=== PATIENT | female | born 1990 | race Hispanic/Latino ===

== ENCOUNTER 2018-01-06 10:46 | Outpatient (CLI) | payer MEDICAID ==
--- NOTE | 2018-01-06 16:43 | ULT ---
BILATERAL BREAST ULTRASOUND: Date: 01/06/18 HISTORY: 27-year-old female with bilateral breast pain. FINDINGS: Sonographic evaluation of the breast was performed bilaterally. No suspicious abnormalities are seen. No solid or cystic mass identified. IMPRESSION: Unremarkable exam. POS: OFF
--- NOTE | 2018-01-06 16:46 | ULT ---
PELVIC ULTRASOUND WITH DOPPLER: (Transabdominal, transvaginal, Orozco scale, color flow, and spectral Doppler) Date: 01/06/18 HISTORY: 27-year-old female with pelvic pain. FINDINGS: The uterus measures 6.9 x 4.2 x 3.4 cm. Endometrium measures 6.0 mm in thickness. An IUD is present. The right ovary measures 4.1 x 3.9 x 2.7 cm. The left ovary measures 3.8 x 3.0 x 2.7 cm. Flow is demo nstrated to both ovaries. No adnexal mass or free fluid is seen in the pelvis. IMPRESSION: IUD in place. No abnormalities are seen. POS: OFF
== END 2018-01-06 10:47 | disposition home or self-care (01) ==
LOC: BICULT 10:46 → EDSTATUS 11:00
PROVIDERS: ATTEND Nurse Practitioner Family
DX: R10.2 Pelvic and perineal pain (principal); N64.4 Mastodynia; Z97.5 Presence of (intrauterine) contraceptive device
CPT/HCPCS: 76641; 76856

== ENCOUNTER 2019-11-12 11:18 | Inpatient (IN) | payer OTHER ==
[2019-11-12] MEDS ORDERED: Misoprostol 200 MCG TAB PR PRN (12:00)
[2019-11-12] MEDS ORDERED: NS / Oxytocin 40 units/1000ml 1,000 ML IV PRN (12:00)
[2019-11-12] MEDS ORDERED: Diphenoxylate HCl/Atropine Tablet PO PRN ×2 (12:00)
[2019-11-12] MEDS ORDERED: HYDROcodone/Acetaminophen 5/325 mg Tablet PO PRN ×4 (12:00→20:02)
[2019-11-12] MEDS ORDERED: Lidocaine 1% (PF) 30 ML VIAL SC PRN (12:00)
[2019-11-12] MEDS ORDERED: Butorphanol Tartrate 1 MG/ML VIAL SLOW IVP PRN (12:00)
[2019-11-12] MEDS ORDERED: NS w/ Oxytocin 10 units 500 ML IV SCH ×2 (12:00)
[2019-11-12] MEDS ORDERED: Ondansetron PF 4 MG/2 ML Vial IVP PRN ×3 (12:00→18:24)
[2019-11-12] MEDS ORDERED: Acetaminophen 500 MG TAB PO PRN (12:00)
[2019-11-12] MEDS ORDERED: Promethazine HCl 25 MG/ML VIAL IM PRN ×3 (12:00→18:24)
[2019-11-12] MEDS ORDERED: Docusate 100 MG CAP PO PRN (12:00)
[2019-11-12] MEDS ORDERED: hydrALAZINE 20 MG/ML VIAL SLOW IVP PRN ×2 (12:00→18:24)
[2019-11-12] MEDS ORDERED: Methylergonovine 0.2 MG/ML VIAL IM PRN (12:00)
[2019-11-12] MEDS ORDERED: Carboprost 250 MCG/ML AMP IM PRN (12:00)
[2019-11-12] MEDS ORDERED: Ibuprofen 800 MG TAB PO PRN (12:00)
[2019-11-12] MEDS: Lactated Ringer's 1,000 ML IV SCH ×2 (12:28→15:49)
[2019-11-12 12:33] VITALS: BMI 39.7
[2019-11-12 12:41] LABS: Hemoglobin 13.4 g/dL (12.0-16.0); Mean Corpuscular HGB CONC 33.8 g/dL (32.0-36.0); Mean Corpuscular Hemoglobin 32.3 pg (27.0-31.0); Mean Corpuscular Volume 95.4 fL (78.0-98.0); Mean Platelet Volume 9.9 fL (7.4-10.4); Platelet Count 207 thou/uL (130-400); Red Blood Cell (RBC) Count 4.14 mill/uL (4.20-5.40); White Blood Cell (WBC) Count 13.2 thou/uL (4.8-10.8)
[2019-11-12 13:19] LABS: Syphilis Antibody Nonreactive (Nonreactive); Syphilis Antibody Index 0.02 S/CO (<1.00 Non-Reactive)
[2019-11-12 13:20] LABS: HBSAg Index 0.19 S/CO (0-0.99); Hep B Surf Ag Non-Reactive S/CO (NonReactive)
[2019-11-12] MEDS ORDERED: Fentanyl 4 mcg/Bup 0.1% Cadd 100 ML ONE (13:48)
--- NOTE | 2019-11-12 15:18 | PDOC.LDHP ---
Labor and Delivery H&P Chief complaint: contractions HPI: 29 y/o G2 [id number] at 38 and 2/7 weeks, with GDM, presents in early labor with 5cm cervical dilation. Current gestational age (weeks): 38 Due date: 11/24/19 Grav: 2 Para: 1 Current complications: gestational diabetes Abnormal US findings: No Current medications: pre-divina vitamins Allergies/Adverse Reactions: Allergies Allergy/AdvReac Type Severity Reaction Status Date / Time No Known Allergies Allergy Verified 11/12/19 12:17 Social history: none - Physical Exam Vital signs reviewed and normal: yes General: NAD, resting Heart: RRR Lungs: CTAB Abdomen: gravid Extremeties: no edema FHT: category 1 - Vaginal Exam cm dilated: 5 Station: -1 - Assessment L&D Assessment: term patient in labor - Plan Plan: admit to L&D, labor augmentation if indicated
[2019-11-12] MEDS ORDERED: Naloxone HCl 0.4 mg/ml Vial IVP PRN ×2 (15:26)
[2019-11-12] MEDS ORDERED: diphenhydrAMINE 50 MG/ML VIAL IVP PRN (15:26)
[2019-11-12] MEDS ORDERED: EPHEDRINE 25 MG/5 ML SYRINGE SLOW IVP PRN (15:26)
[2019-11-12] MEDS ORDERED: Acetaminophen 325 MG TAB PO PRN (15:26)
[2019-11-12] MEDS ORDERED: Lactated Ringer's 500 ML IV PRN (15:26)
[2019-11-12] MEDS ORDERED: Communication Order-Pharmacy FS SCH (15:30)
[2019-11-12] MEDS ORDERED: Fentanyl 4 mcg/Bupivacaine 0.1% Cassette 100 ML EPIDURAL SCH (15:30)
[2019-11-12] MEDS ORDERED: Lidocaine 1% (PF) 30 ML VIAL ONE (16:05)
[2019-11-12] MEDS ORDERED: NS / Oxytocin 40 units/1000ml 1,000 ML ONE (16:05)
[2019-11-12] MEDS ORDERED: Lanolin Ointment 7 GM TUBE TOP PRN (18:24)
[2019-11-12] MEDS ORDERED: NS / Oxytocin 40 units/1000ml 1,000 ML IV SCH (18:24)
[2019-11-12] MEDS ORDERED: Milk Of Magnesia 30 ML UDCUP PO PRN (18:24)
[2019-11-12] MEDS ORDERED: Benzocaine-Menthol 82.5 ML CAN TOP PRN (18:24)
[2019-11-12] MEDS ORDERED: Preparation H Ointment 28 GM TUBE PR PRN (18:24)
[2019-11-12] MEDS ORDERED: Bisacodyl 10 MG SUPP PR PRN (18:24)
[2019-11-12] MEDS ORDERED: diphenhydrAMINE 25 MG CAP PO PRN (18:24)
[2019-11-12] MEDS ORDERED: Zolpidem Tartrate 5 MG TAB PO PRN (18:24)
[2019-11-12] MEDS ORDERED: Misoprostol 200 MCG TAB VAG PRN (18:24)
[2019-11-12] MEDS ORDERED: Ferrous Sulfate 325 MG TAB PO SCH (18:45)
[2019-11-12] MEDS: Docusate Calcium (SURFAK) 240 MG CAP PO SCH (20:56)
[2019-11-12] MEDS: Ibuprofen 800 MG TAB PO SCH (20:56)
[2019-11-13] MEDS: Ibuprofen 800 MG TAB PO SCH ×2 (05:09→13:31)
[2019-11-13 05:56] LABS: Hemoglobin 13.3 g/dL (12.0-16.0); Mean Corpuscular HGB CONC 33.9 g/dL (32.0-36.0); Mean Corpuscular Hemoglobin 32.4 pg (27.0-31.0); Mean Corpuscular Volume 95.3 fL (78.0-98.0); Mean Platelet Volume 9.6 fL (7.4-10.4); Platelet Count 181 thou/uL (130-400); RBC Distribution Width 12.8 % (11.5-14.5); Red Blood Cell (RBC) Count 4.12 mill/uL (4.20-5.40); White Blood Cell (WBC) Count 14.5 thou/uL (4.8-10.8)
[2019-11-13] MEDS: Ferrous Sulfate 325 MG TAB PO SCH ×2 (07:07→13:29)
[2019-11-13] MEDS: Docusate Calcium (SURFAK) 240 MG CAP PO SCH (08:28)
[2019-11-13] MEDS ORDERED: Varicella virus, LIVE 0.5 ML VIAL SC ONE (09:00)
[2019-11-13] MEDS ORDERED: Prenatal Vitamin 1 TAB PO SCH (09:00)
[2019-11-13] MEDS ORDERED: Adacel (T-DAP) 0.5 ML SYRINGE IM ONE (09:00)
[2019-11-13] MEDS ORDERED: Measles/Mumps/Rubella 10 MCG/0.5 ML VIAL SC ONE (09:00)
--- NOTE | 2019-11-13 11:12 | PDOC.PP ---
Post Progress Note Post Day #: 1 PO intake tolerated: yes Flatus: yes Ambulation: yes Vital Signs (12 hours) Temp Pulse Resp BP Pulse Ox 11/13/19 08:23 98.0 F 90 20 116/65 99 11/13/19 05:05 97.6 F 73 16 112/83 11/13/19 01:00 98.1 F 93 16 111/74 Weight Weight 285 lb - Physical Examination General: NAD Cardiovascular: no m/r/g, RRR Respiratory: clear to auscultation bilaterally, non-labored breathing Abdominal: + bowel sounds, lochia, no distention Extremities: negative homans (B) Neurological: no gross focal deficits (DC home this eveneing requested.) Psychiatric: A&Ox3, normal affect Result Diagrams: 11/13/19 05:24 Additional Labs: Post Labs Hep Bs Antigen Non-Reactive S/CO (NonReactive) 11/12/19 12:30 Blood Type O POSITIVE 11/12/19 13:08
[2019-11-13 12:08] LABS: SARS-CoV-2 MS2 Positive; SARS-CoV-2 N Gene Negative; SARS-CoV-2 S Gene Negative; SARS-CoV-2 by NAA Not Detected (NotDetected); SARS-CoV-2 orf1ab Negative
[2019-11-13 16:28] VITALS: BP 113/64; TEMP 98
--- NOTE | 2019-11-13 19:35 | DN ---
DATE OF PROCEDURE: 11/12/2019 TIME OF SERVICE: 1617 hours central daylight savings time. PREOPERATIVE DIAGNOSIS: Intrauterine at 38 weeks and 2 days with spontaneous onset of labor. POSTOPERATIVE DIAGNOSIS: Intrauterine at 38 weeks and 2 days with spontaneous onset of labor. PROCEDURE PERFORMED: Spontaneous vaginal delivery over a right periurethral laceration. FINDINGS: Viable female infant, weighing 3780 g or 8 pounds 5 ounces, Apgars 7 and 9. QUANTITATIVE BLOOD LOSS: 281 mL. COMPLICATIONS: None. PROCEDURE IN DETAIL: The patient presented to [facility] where she was admitted to the labor and delivery service. The patient underwent a normal and uneventful labor with normal cervical dilatation until she was found to be completely dilated. She was then allowed to push and was able to bring the baby down and delivered the baby in a vertex presentation without difficulties. Once the head delivered in occiput anterior position, the shoulders followed spontaneously along with the rest of the baby's body. Once out the baby's mouth and nose were bulb suctioned. The cord was clamped and cut and baby was handed to waiting attendants. Cord blood was collected. Gentle fundal massage was performed and the placenta delivered intact without problems. Hemostasis was assured. Quantitative blood loss was calculated. Inspection of the cervix, vaginal vault, and perineum did not reveal any lacerations needing suturing. Once again, hemostasis was within normal limits and the patient was allowed to recover in the labor and delivery room. Baby went to nursery. Job ID: [id number]
== END 2019-11-13 18:25 | disposition home or self-care (01) | DRG 807 ==
LOC: L&D 11:18 → 3SW 20:01
PROVIDERS: ADMIT Obstetrics & Gynecology; ATTEND Obstetrics & Gynecology
PROC: 10E0XZZ Delivery of Products of Conception, External Approach (ICD-10-PCS; principal; 2019-11-12)
DX: O24.429 Gestational diabetes mellitus in childbirth, unspecified control (principal); Z37.0 Single live birth; Z3A.38 38 weeks gestation of pregnancy; Z20.828 Contact with and (suspected) exposure to other viral communicable diseases
CPT/HCPCS: 36415; 85027; 86780; 86850; 86900; 86901; 87340; 87635; J2001; J2590; U0003